=== PATIENT | female | born 1960 | race Caucasian/White ===

== ENCOUNTER → 2016-09-16 | Outpatient (CLI) | payer OTHER ==
[~2016-09-16] MED LIST: ABAGIO; ACID1GRA2 PO; ACLI400A2 INH; ALBU8.5H3 INH; ALPH300C PO; ASPI-515 PO; ASPI-621 PO; AZIT500T4 PO; BACL-19 PO; CANA100T PO; CARV12.52 PO; CARV12.543 PO; CEFD300C2 PO; DORZ10DR7 EACHEYE; FURO-92 PO; GABA100C PO; GABA100C8 PO; GUAI200T3 PO; HYDR-3138 PO; LATA2.5D3 EACHEYE; LISI-167 PO; LISI5TAB7 PO; METO25TA91 PO; NICO1PAT4 TD; OMEP20CA9 PO; OMNIPAQUE 350 MG/ML, 100ML BOTTLE ONE; ONDA8TAB9 PO; PARO10TA24 PO; PARO30TA3 PO; POLY17PO5 PO; POTA20TA14 PO; PRED20TA PO; PROC10TA PO; RIVA20TA PO; ROPI0.2537 PO; SIMV20TA PO; SIMV20TA3 PO; TERI14TA PO; TIOT18CA INH; VALS1TAB24 PO
== END | disposition home or self-care (01) ==
LOC: CFH 08:43
PROVIDERS: ATTEND Radiology Radiation Oncology
DX: C34.12 Malignant neoplasm of upper lobe, left bronchus or lung (principal); K80.20 Calculus of gallbladder without cholecystitis without obstruction; N28.1 Cyst of kidney, acquired; J98.11 Atelectasis
CPT/HCPCS: 71260; 74177; Q9967

== ENCOUNTER → 2016-09-26 | Outpatient (CLI) | payer OTHER ==
[~2016-09-26] MED LIST changes: -OMNIPAQUE 350 MG/ML, 100ML BOTTLE ONE
== END | disposition home or self-care (01) ==
LOC: EDSTATUS 08-25 08:04 → ROC 08:05
PROVIDERS: ATTEND Radiology Radiation Oncology
DX: C34.12 Malignant neoplasm of upper lobe, left bronchus or lung (principal); G35 Multiple sclerosis; J98.11 Atelectasis
CPT/HCPCS: 99213; G0463

== ENCOUNTER → 2017-03-21 | Outpatient (CLI) | payer OTHER ==
[~2017-03-21] MED LIST changes: -ACID1GRA2 PO; +ACID1GRA3 PO; -ALBU8.5H3 INH; +ALBU8.5H8 INH; -AZIT500T4 PO; +AZIT500T5 PO; -CEFD300C2 PO; +CEFD300C37 PO; +GABA-826 PO; -GABA100C8 PO; -HYDR-3138 PO; +HYDR-3237 PO; +NICO-486 TD; -NICO1PAT4 TD; +OMNIPAQUE 350 MG/ML, 100ML BOTTLE ONE; -PARO10TA24 PO; +PARO10TA56 PO
== END | disposition home or self-care (01) ==
LOC: CFH 08:51
PROVIDERS: ATTEND Internal Medicine Hematology & Oncology
DX: C34.12 Malignant neoplasm of upper lobe, left bronchus or lung (principal); K80.20 Calculus of gallbladder without cholecystitis without obstruction; N28.1 Cyst of kidney, acquired; K76.0 Fatty (change of) liver, not elsewhere classified; I31.3 Pericardial effusion (noninflammatory); M47.896 Other spondylosis, lumbar region; M51.34 Other intervertebral disc degeneration, thoracic region
CPT/HCPCS: 71260; 74177; Q9967

== ENCOUNTER → 2017-08-04 | Outpatient (CLI) | payer OTHER ==
[~2017-08-04] MED LIST changes: +BACL20TA PO; +FLUT1BLS PO
== END | disposition home or self-care (01) ==
LOC: CFH 07:09
PROVIDERS: ATTEND Internal Medicine Hematology & Oncology
DX: K80.20 Calculus of gallbladder without cholecystitis without obstruction (principal); C34.12 Malignant neoplasm of upper lobe, left bronchus or lung; I70.0 Atherosclerosis of aorta; Z90.710 Acquired absence of both cervix and uterus
CPT/HCPCS: 71260; 74177; Q9967

== ENCOUNTER → 2017-11-09 | Outpatient (CLI) | payer OTHER | LOC: CFH 13:14 | PROVIDERS: ATTEND Internal Medicine Hematology & Oncology | DX: C34.12 Malignant neoplasm of upper lobe, left bronchus or lung (principal); J18.1 Lobar pneumonia, unspecified organism; I31.3 Pericardial effusion (noninflammatory); J90 Pleural effusion, not elsewhere classified | CPT/HCPCS: 71260; 74177; Q9967 ==

== ENCOUNTER → 2017-11-23 | Outpatient (CLI) | payer OTHER ==
[~2017-11-23] MED LIST changes: +GADOBUTROL 10 MMOL/10 ML VIAL ONE; -OMNIPAQUE 350 MG/ML, 100ML BOTTLE ONE
== END | disposition home or self-care (01) ==
LOC: CFH 07:40
PROVIDERS: ATTEND Internal Medicine Hematology & Oncology
DX: G93.89 Other specified disorders of brain (principal); R90.82 White matter disease, unspecified; I31.3 Pericardial effusion (noninflammatory); C34.12 Malignant neoplasm of upper lobe, left bronchus or lung
CPT/HCPCS: 70553; 78815; A9552; A9585

== ENCOUNTER → 2017-11-27 | Outpatient (CLI) | payer OTHER ==
[~2017-11-27] MED LIST changes: +DEXA4TAB66 PO; -GADOBUTROL 10 MMOL/10 ML VIAL ONE
== END | disposition home or self-care (01) ==
LOC: ROC 07:51
PROVIDERS: ATTEND Radiology Radiation Oncology
DX: Z08 Encounter for follow-up examination after completed treatment for malignant neoplasm (principal); C34.91 Malignant neoplasm of unspecified part of right bronchus or lung; C79.31 Secondary malignant neoplasm of brain
CPT/HCPCS: 99213; G0463